=== PATIENT | male | born 1975 | race Asian ===

== ENCOUNTER 2022-07-12 09:02 | Day surgery (SDC) | payer OTHER ==
[~2022-07-12] VITALS: Ht 182.9 cm; Wt 86.2 kg
[2022-07-12] MEDS ORDERED: LIDOCAINE 2% 100 MG/5 ML UJET TP ONE (10:22)
[2022-07-12] MEDS ORDERED: diphenhydrAMINE 50 MG/ML VIAL ONE (10:22)
[2022-07-12] MEDS ORDERED: MIDAZOLAM 5 MG/5 ML VIAL ONE (10:22)
[2022-07-12] MEDS ORDERED: fentaNYL citrate 0.05 MG/ML VIAL ONE (10:22)
[2022-07-12] MEDS ORDERED: fentaNYL citrate 0.05 MG/ML VIAL IVP ONE (12:45)
[2022-07-12] MEDS ORDERED: MIDAZOLAM 2 MG/2 ML VIAL IVP ONE (12:45)
[2022-07-12] MEDS ORDERED: diphenhydrAMINE 50 MG/ML VIAL IVP ONE (12:45)
== END 2022-07-12 12:15 | disposition home or self-care (01) ==
LOC: MMU 09:02 → MDS 09:02
PROVIDERS: ATTEND Internal Medicine Gastroenterology
DX: Z12.11 Encounter for screening for malignant neoplasm of colon (principal); K63.5 Polyp of colon
CPT/HCPCS: 45385; 88305; J1200; J2250; J3010